=== PATIENT | female | born 1970 | race Hispanic/Latino ===

== ENCOUNTER 2020-02-02 15:43 | Inpatient (IN) | payer SELFPAY ==
[~2020-02-02] VITALS: Ht 157.5 cm; Wt 81.6 kg
[2020-02-02] MEDS ORDERED: ALBUTEROL SULFATE HFA 8GM INHALATION AEROSOL INH STA (15:50)
--- NOTE | 2020-02-02 15:55 | Emergency Department Note ---
History of Present Illnes History of Present Illness Chief Complaint: COVID PUI History of Present Illness This is a 49 year old female with dyspnea and myalgias for one week. . Onset (how long ago): week(s) (1) Location: Generalized Severity: moderate Onset quality: gradual Duration (how long): week(s) (1) Timing of current episode: constant Progression: worsening Chronicity: new Context: Reports recent illness Relieving factors: none Exacerbating factors: none Associated symptoms: Reports fever/chills, Reports malaise, Reports weakness Treatments prior to arrival: none Past Medical/Family History Physician Review I have reviewed the patient's past medical and family history. Any updates have been documented here. Past Medical History Recent Fever: Yes Clinical Suspicion of Infectio: Yes New/Unexplained Change in Ment: No Past Medical History: None Past Surgical History: None Social History Smoking Cessation: Never Smoker Alcohol Use: None Any Illegal Drug Use: No Review of Systems Review of Systems Constitutional: Reports fever EENTM: Reports no symptoms Cardiovascular: Reports no symptoms Respiratory: Reports cough Gastrointestinal: Reports no symptoms Genitourinary: Reports no symptoms Musculoskeletal: Reports no symptoms Integumentary: Reports no symptoms Neurological: Reports no symptoms Psychological: Reports no symptoms Endocrine: Reports no symptoms Hematological/Lymphatic: Reports no symptoms Physical Exam Related Data Allergies: Coded Allergies: No Known Allergies (Unverified , 02/02/20) Triage Vital Signs Vital Signs Date Time Temp Pulse Resp B/P (MAP) Pulse Ox O2 Delivery O2 Flow Rate FiO2 02/02/20 15:54 99.6 96 30 158/82 88 02/02/20 16:52 5.0 02/02/20 17:50 Nasal Cannula Vital signs reviewed: Yes Physical Exam CONSTITUTIONAL Constitutional: Present distressed, Present ill appearing HENT HENT: Present normocephalic, Present atraumatic, Present oropharynx clear/moist, Present nose normal HENT L/R: Present left ext ear normal, Present right ext ear normal EYES Eyes: Reports PERRL, Reports conjunctivae normal NECK Neck: Present ROM normal PULMONARY Pulmonary: Present respiratory distress (mild), Present other (decreased BS) CARDIOVASCULAR Cardiovascular: Present regular rhythm, Present heart sounds normal, Present c apillary refill normal, Present normal rate GASTROINTESTINAL Abdominal: Present soft, Present nontender, Present bowel sounds normal GENITOURINARY Genitourinary: Present exam deferred SKIN Skin: Present warm, Present dry MUSCULOSKELETAL Musculoskeletal: Present ROM normal NEUROLOGICAL Neurological: Present alert, Present oriented x 3, Present no gross motor or sensory deficits PSYCHOLOGICAL Psychological: Present mood/affect normal, Present judgement normal Results Laboratory Lab results reviewed: Yes Imaging Imaging results reviewed: Yes Impressions [place] [address] Patient Name: SALLY UMANA MR #: [id number] : 1970 Age/Sex: 49/F Req #: [id number] Adm Physician: RENEE URBAN MD Ordered by: YADY MORAN DO Report #: [id number] Location: [facility] Room/Bed: [place] [address] Procedure: [id number] DX/CHEST SINGLE (PORTABLE) Exam Date: 02/02/20 Exam Time: 1620 REPORT STATUS: Signed EXAMINATION: CHEST SINGLE (PORTABLE) INDICATION: ^Y ^cough ^[id number] ^1620 COMPARISON: None FINDINGS: AP view TUBES and LINES: None. LUNGS: Lungs are well inflated. Patchy bilateral lower lobe predominant airspace opacities. PLEURA: No pleural effusion or pneumothorax. HEART AND MEDIASTINUM: The cardiac silhouette is prominent. BONES AND SOFT TISSUES: No acute osseous lesion. Soft tissues are unremarkable. UPPER ABDOMEN: No free air under the diaphragm. IMPRESSION: Bilateral airspace opacities are concerning for multifocal pneumonia. Mild enlargement of the cardiac silhouette may be overestimated by portable technique. Mild central pulmonary vascular congestion. Signed by: Dr. Ronni Jensen M.D. on 02/02/2020 6:01 PM Dictated By: RONNI JENSEN MD 1801 Transcribed By: TAMIA on 02/02/201800 COPY TO: YADY MORAN DO~ Critical Care Time Total Critical Care Time (min): 31 Critcal care necessary due to: respiratory failure Critcal care time spent by me: develop tx plan w patient/surrogate, obtaining hx from patient/surrogate, order/perform tx or interventions, order/review laboratory studies, order/review radiographic studies, pulse oximetry, re- evaluation of patient condition Assessment & Plan Medical Decision Making MDM 49 yof presents to the ED for mild respiratory distress. COVID-19 infection highly suspected and confirmed. Concern for impending respiratory failure. Dr Omar Woo consulted. Patient admitted to IMCU Assessment & Plan Final Impression: (1) COVID-19 (2) Hypoxia Depart Disposition: ADMITTED Last Vital Signs Date Time Temp Pulse Resp B/P (MAP) Pulse Ox O2 Delivery O2 Flow Rate FiO2 02/04/20 12:50 97.9 74 16 123/69 (87) 96 02/04/20 09:30 Room Air 02/04/20 05:04 3.0 Medications in the ED Albuterol INH RQ4H STAT INH ; Start 02/02/20 at 15:50; Stop 02/02/20 at 15:51; Status DC YADY MORAN DO Feb 02, 2020 15:55
[2020-02-02] MEDS ORDERED: MORPHINE SULFATE 2 MG/ML SYR 1ML IV PRN (16:00)
[2020-02-02] MEDS ORDERED: ONDANSETRON HCL INJ 2MG/ML 2ML 2 MG/ML VIAL IV PRN (16:00)
[2020-02-02 16:13] LABS: BASOPHILS % 0.2 % (0.0-1.0); EOSINOPHILS % 0.1 % (0.0-6.0); HEMATOCRIT 43.1 % (34.2-44.1); HEMOGLOBIN 14.1 g/dL (12.0-16.0); LYMPHOCYTES # (AUTO) 2.9 (1.0-3.2); LYMPHOCYTES % 33.1 % (18.0-39.1); MEAN CORPUSCULAR HEMOGLOBIN 27.1 pg (28-32); MEAN CORPUSCULAR HGB CONC 32.7 g/dL (31-35); MEAN CORPUSCULAR VOLUME 82.9 fL (81-99); MONOCYTES % 10.9 % (4.4-11.3); NEUTROPHILS # (AUTO) 4.8 (2.1-6.9); NEUTROPHILS % 54.8 % (38.7-80.0); PLATELET COUNT 341 x10e3/uL (140-360); RED CELL DISTRIBUTION WIDTH 13.1 % (11.7-14.4)
[2020-02-02] MEDS ORDERED: ACETAMINOPHEN 325 MG TAB PO NR (16:15)
[2020-02-02 16:40] LABS: ALANINE AMINOTRANSFERASE 54 IU/L (0-55); ALBUMIN 3.3 g/dL (3.5-5.0); ALBUMIN/GLOBULIN RATIO 0.7 (0.8-2.0); ALKALINE PHOSPHATASE 78 IU/L (40-150); ANION GAP 14.8 mmol/L (8-16); BLOOD UREA NITROGEN 10 mg/dL (7-26); BUN/CREATININE RATIO 15 (6-25); CALCIUM 9.1 mg/dL (8.4-10.2); CARBON DIOXIDE 23 mmol/L (22-29); CHLORIDE 105 mmol/L (98-107); CREATININE, SERUM 0.67 mg/dL (0.57-1.11); EST GLOMERULAR FILTRATION RATE > 60 ML/MIN (60-); GLUCOSE 102 mg/dL (74-118); POTASSIUM 3.8 mmol/L (3.5-5.1); SODIUM 139 mmol/L (136-145)
[2020-02-02] MEDS ORDERED: ACETAMINOPHEN 325 MG TAB PO PRN (17:15)
[2020-02-02 17:31] VITALS: BP 135/74
--- NOTE | 2020-02-02 17:39 | NUR ---
AAOX3. ACYANOTIC. ARRIVED TO IMCU UNIT AT APPROXIMATELY 1725. RESTING IN BED. NO DISTRESS NOTED. O2 AT 5L NC
[2020-02-02 17:50] VITALS: BP 135/74
[2020-02-02 17:52] VITALS: BP 135/74
--- NOTE | 2020-02-02 18:04 | Diagnostic Imaging Report ---
EXAMINATION: CHEST SINGLE (PORTABLE) INDICATION: ^Y ^cough ^[id number] ^1620 COMPARISON: None FINDINGS: AP view TUBES and LINES: None. LUNGS: Lungs are well inflated. Patchy bilateral lower lobe predominant airspace opacities. PLEURA: No pleural effusion or pneumothorax. HEART AND MEDIASTINUM: The cardiac silhouette is prominent. BONES AND SOFT TISSUES: No acute osseous lesion. Soft tissues are unremarkable. UPPER ABDOMEN: No free air under the diaphragm. IMPRESSION: Bilateral airspace opacities are concerning for multifocal pneumonia. Mild enlargement of the cardiac silhouette may be overestimated by portable technique. Mild central pulmonary vascular congestion. Signed by: Dr. Jaycee Vann M.D. on 02/02/2020 6:01 PM
[2020-02-02] MEDS ORDERED: HYDRALAZINE HCL 20 MG/ML VIAL IV PRN (19:15)
[2020-02-02 20:00] VITALS: BP 121/77
--- NOTE | 2020-02-02 20:20 | History and Physical ---
CHIEF COMPLAINT: Cough and dyspnea. HISTORY OF PRESENT ILLNESS: The patient is a 49-year-old woman. She reports cough and malaise for about one week. She does not believe she had fevers at home. She does have some mild dyspnea. She has no nausea or vomiting. When she came to the emergency department, she had low oxygen saturations and had to be placed on nasal cannula. PAST SURGICAL HISTORY: Noncontributory. PAST MEDICAL HISTORY: 1. Hypertension. 2. The patient denies any history of asthma or COPD. 3. No prior history of diabetes. ALLERGIES: NO KNOWN DRUG ALLERGIES. SOCIAL HISTORY: The patient is not a smoker or drinker. FAMILY HISTORY: Family history is noncontributory. REVIEW OF SYSTEMS: The patient is afebrile. PHYSICAL EXAMINATION: VITAL SIGNS: The blood pressure is 142/80 and the saturation is 99% on 5 L. Pulse is 89. HEENT: Shows no facial swelling or erythema. CARDIAC: Reveals regular rate and rhythm with normal S1 and S2. LUNGS: Auscultation of lungs reveals crackles at the bases. There is no wheezing. ABDOMEN: Soft and nontender. There is no rebound or guarding. EXTREMITIES: Shows no leg edema or calf tenderness. There is no cyanosis or clubbing. SKIN: Shows no rashes. NEUROLOGICAL: Shows no focal abnormalities. LABORATORY DATA: BUN to creatinine ratio is normal. Other electrolytes are within normal limits. The albumin is 3.3. White blood cell count is 8.7 and the hemoglobin is 14.1. The platelet count is 341. RADIOGRAPHIC DATA: Chest x-ray is still pending. IMPRESSION: 1. Cough and viral pneumonia. 2. COVID-19. 3. Hypertension. PLAN: 1. Continue oxygen. 2. Judicious use of IV fluids. 3. Tylenol. 4. Antibiotics. 5. Lovenox. Isauro Woo MD Bijal/TRISTIAN /[id number]
[2020-02-02] MEDS ORDERED: SODIUM CHLORIDE 0.9% 250ML 250 ML ONE (20:50)
[2020-02-02] MEDS ORDERED: ZOLPIDEM TARTRATE 5 MG TAB PO PRN (21:00)
[2020-02-02] MEDS: CEFTRIAXONE SOD 1 GM/NS 50 ML 50 ML IV SCH (21:08)
[2020-02-02 21:30] VITALS: BP 121/77
[2020-02-02] MEDS: AZITHROMYCIN 500MG/NS 250 ML 250 ML IV SCH (21:30)
--- NOTE | 2020-02-02 21:30 | NUR ---
PATIENT RESTING IN BED, NO SIGNS OF DISTRESS NOTED. IV ANTIBIOTICS ARE RUNNING AT ORDERED RATE, AND PATIENT VOICES NO PAIN AT THIS TIME. NASAL CANNULA IS INTACT AND PATENT AND RUNNING AT 5 LITERS. O2 SATS ARE WITHIN NORMAL RANGE. BED IS IN LOWEST POSITION, BOTH SIDE RAILS ARE UP, CALL LIGHT IS WITHIN EASY REACH, WILL CONTINUE TO MONITOR.
[2020-02-03] VITALS (9 sets, daily range): BP systolic 113–120; BP diastolic 67–75
[2020-02-03] MEDS: LISINOPRIL 2.5 MG TAB PO SCH (08:37)
--- NOTE | 2020-02-03 10:07 | Progress Note ---
DATE: SUBJECTIVE: The patient feels better. She has less cough. She is having only mild dyspnea. She has no fevers. She is still on nasal cannula at 3 L. OBJECTIVE: HEENT: Shows no facial swelling or erythema. CARDIAC: Reveals regular rate and rhythm with normal S1 and S2. LUNGS: Auscultation of lungs reveals rhonchus breath sounds bilaterally. There is no wheezing. ABDOMEN: Soft, nontender. There is no rebound or guarding. EXTREMITIES: Shows no leg edema or calf tenderness. ASSESSMENT: 1. Viral pneumonia and coronavirus disease -19 infection. 2. Hypertension. PLAN: 1. Continue oxygen. 2. Tylenol. 3. Complete antibiotics. 4. Lovenox. Isauro Woo MD [facility]/MODL /[id number]
[2020-02-03] MEDS ORDERED: ENOXAPARIN SOD INJ 40 MG/0.4 ML SYR SC SCH (17:00)
--- NOTE | 2020-02-03 19:15 | NUR ---
SBAR REPORT RECEIVED FROM [facility] PATIENT AWAKE ALERT, NO DISTRESS, CONTINUE ON PLAN OF CARE, IV ANTIBIOTICS ROCEPHIN AND ZITHROMAX CONTINUED, IV PATENT C/D/I LOVENOX VTE, TYLENOL PRN FOR FEVER, OXYGEN TITRATE SPO2 ABOVE 93%, CURRENTLY ON 3 LITERS VIA NASAL CANNULA TOLERATING WELL, BED IN LOWEST POSITION, CALL LIGHT WITHIN REACH,
[2020-02-03] MEDS: CEFTRIAXONE SOD 1 GM/NS 50 ML 50 ML IV SCH (20:35)
[2020-02-03] MEDS: AZITHROMYCIN 500MG/NS 250 ML 250 ML IV SCH (22:16)
[2020-02-04] VITALS (7 sets, daily range): BP systolic 112–126; BP diastolic 60–78
[2020-02-04 03:41] LABS: BASOPHILS % 0.2 % (0.0-1.0); EOSINOPHILS # (AUTO) 0.1 (0.0-0.4); EOSINOPHILS % 1.2 % (0.0-6.0); HEMATOCRIT 36.7 % (34.2-44.1); HEMOGLOBIN 11.6 g/dL (12.0-16.0); LYMPHOCYTES # (AUTO) 1.6 (1.0-3.2); LYMPHOCYTES % 36.6 % (18.0-39.1); MEAN CORPUSCULAR HEMOGLOBIN 26.6 pg (28-32); MEAN CORPUSCULAR HGB CONC 31.6 g/dL (31-35); MEAN CORPUSCULAR VOLUME 84.2 fL (81-99); MONOCYTES # (AUTO) 0.4 (0.2-0.8); MONOCYTES % 9.2 % (4.4-11.3); NEUTROPHILS # (AUTO) 2.2 (2.1-6.9); NEUTROPHILS % 52.1 % (38.7-80.0); PLATELET COUNT 288 x10e3/uL (140-360); RED BLOOD COUNT 4.36 x10e6/uL (3.6-5.1); RED CELL DISTRIBUTION WIDTH 13.1 % (11.7-14.4)
[2020-02-04 03:56] LABS: ALANINE AMINOTRANSFERASE 133 IU/L (0-55); ALBUMIN 2.5 g/dL (3.5-5.0); ALBUMIN/GLOBULIN RATIO 0.6 (0.8-2.0); ALKALINE PHOSPHATASE 78 IU/L (40-150); BLOOD UREA NITROGEN 13 mg/dL (7-26); BUN/CREATININE RATIO 22 (6-25); CALCIUM 8.6 mg/dL (8.4-10.2); CARBON DIOXIDE 25 mmol/L (22-29); CHLORIDE 107 mmol/L (98-107); CREATININE, SERUM 0.58 mg/dL (0.57-1.11); EST GLOMERULAR FILTRATION RATE > 60 ML/MIN (60-); GLUCOSE 97 mg/dL (74-118); MAGNESIUM 2.3 MG/DL (1.3-2.1); PHOSPHORUS 3.6 MG/DL (2.3-4.7); SODIUM 143 mmol/L (136-145)
--- NOTE | 2020-02-04 06:20 | Progress Note ---
DATE: 02/03/2020 CONSULTING PHYSICIANS: 1. Dr. Isauro Woo. 2. Dr. Violette Moody. SUBJECTIVE: The patient is lying supine in bed. Denies much change. Still with occasional fevers and/or chills, shortness of breath, especially with any significant exertion, productive cough. Denies diarrhea. Headache at times. OBJECTIVE: VITAL SIGNS: Temperature 97.9, pulse 63, blood pressure 113/72, respirations 18, and oxygen saturation 98%. The patient was seen on 02/03/2020. GENERAL: Supine, wearing jeans. LUNGS: Clear to auscultation with diminished bases. Oxygen at 3 L via nasal cannula. HEENT: EOMI. NECK: Supple. CARDIOVASCULAR: Regular rate and rhythm. No murmur. ABDOMEN: Bowel sounds positive. Soft, nontender. EXTREMITIES: No pitting edema. No clubbing or cyanosis. No signs of DVT. NEUROLOGIC: GCS 15. Nonfocal. LABORATORY DATA: No new labs today. We will order labs for tomorrow. ASSESSMENT AND PLAN: 1. Possible multifocal viral community-acquired pneumonia, present on arrival due to COVID-19. Pulmonology and Infectious Disease following. Empiric azithromycin and Rocephin for possible bacterial component. Continue albuterol inhaler and Lovenox as well as supplemental oxygen. Wean oxygen as tolerated. Currently afebrile. 2. Controlled hypertension. Continue home dose of lisinopril. 3. Obesity with BMI of 32.91. Dietary restrictions. 4. Prophylaxis. Pepcid and Lovenox. Billing code 99893. Time spent 35 minutes. Dictated by Santy Baxter NP MD NICHELLE GarciaP/SHYAML /[id number]
--- NOTE | 2020-02-04 06:36 | NUR ---
REPORT GIVEN TO DAYSHIFT RN PATIENT REMAIN ON DROPLET PRECAUTION (+) COVID-19 RESULT, UPDATED WITH PLAN OF CARE
[2020-02-04] MEDS: LISINOPRIL 2.5 MG TAB PO SCH (08:42)
--- NOTE | 2020-02-04 12:33 | NUR ---
GAVE PACKET OF INFORMATION WITH [facility] FOR ASSISTANCE WITH LOW TO NO INCOME TO PATIENT. RESOURCES THAT PATIENT MAY BE ABLE TO FOLLOW UP UPON DISCHARGE. PT EDUCATED ON EACH RESOURCE AND UNDERSTANDING HOW TO FOLLOW UP TO SEE IF QUALIFIED FOR EACH RESOURCE.
--- NOTE | 2020-02-04 12:58 | Consultation ---
DATE OF CONSULTATION: REASON FOR CONSULTATION: Pneumonia, COVID-19. HISTORY OF PRESENT ILLNESS: This is a 49-year-old female, who comes in with one-week history of fever, chills, not feeling well, cough. The patient came to the emergency room. She was little bit hypoxemic upon arrival. She was started on 2 L and she is feeling much better. The patient has underlying history of obesity, hypertension. Denies diabetes or other medical issues. PAST SURGICAL HISTORY: She denies. ALLERGIES: NKA. SOCIAL HISTORY: There is no smoking, drug abuse, or alcohol abuse. FAMILY HISTORY: Unremarkable. PHYSICAL EXAMINATION: GENERAL: Currently alert, oriented, does not seem in acute distress. VITAL SIGNS: Stable. There is no fever since admission. Temperature 97.7, heart rate 72, O2 saturation 98% on 3 L. HEENT: She is not icteric. NECK: Supple. CHEST: Clear bilateral. HEART: S1 and S2. ABDOMEN: Soft. MEDICATIONS: The patient is on Prinivil, Zithromax and Rocephin. IMAGING: Her chest x-ray showed multifocal pneumonia. ASSESSMENT: The patient with coronavirus disease - 19, atypical pneumonia concerned about communal pneumonia. The patient clinically is doing better. Continue with oxygen. Continue with current choice of antibiotic. Continue with supportive care as ordered, reassess in the morning. Continue with Lovenox as ordered. We will follow. MD JEROMY Hodgson/TRISTIAN /[id number]
[2020-02-04] MEDS ORDERED: ONDANSETRON HCL 4 MG ORAL DISINTEGRATING TAB PO PRN (15:15)
--- NOTE | 2020-02-04 17:09 | Progress Note ---
DATE: SUBJECTIVE: The patient is feeling better. She is afebrile. She is still on nasal cannula. PHYSICAL EXAMINATION: VITAL SIGNS: Stable. HEENT: Shows no facial swelling or erythema. CARDIAC: Reveals regular rate and rhythm with normal S1, S2. LUNGS: Auscultation of lungs reveals clear breath sounds bilaterally. There is no wheezing. ABDOMEN: Soft and nontender. There is no rebound or guarding. EXTREMITIES: Shows no leg edema or calf tenderness. There is no cyanosis or clubbing. SKIN: Shows no rashes. LABORATORY DATA: BUN to creatinine ratio is normal. Other electrolytes within normal limits. The magnesium is 2.3. ALT is 133 and the AST is 84. IMPRESSION: 1. Viral pneumonia and COVID-19. 2. Hypertension. PLAN: 1. Continue oxygen. 2. Tylenol. 3. Possible discharge home today. MD TYE Del Rio/TRISTIAN /[id number]
--- NOTE | 2020-02-05 03:07 | Discharge Summary ---
PRIMARY CARE PHYSICIAN: No primary care physician. CONSULTING PHYSICIANS: 1. Violette Moody MD. 2. Isauro Woo MD. PERTINENT HISTORY AND PHYSICAL FINDINGS: CHIEF COMPLAINT: Cough and shortness of breath. HISTORY OF PRESENT ILLNESS: The patient is a 49-year-old female, admitted with cough, shortness of breath, headache for duration of about 5 days. She reported that 2 weeks prior she had direct contact with her [id number], who was hospitalized with COVID-19 as well as patient's brother. She denied diarrhea. PAST MEDICAL HISTORY: Hypertension and no obesity. PAST SURGICAL HISTORY: Cholecystectomy. FAMILY HISTORY: Mother had hypertension. SOCIAL HISTORY: Denied tobacco, alcohol, or illicit drug use. ALLERGIES: NO KNOWN ALLERGIES. ADMITTING DIAGNOSES: 1. Possible multifocal viral community-acquired pneumonia. 2. Controlled hypertension. 3. Obesity with BMI of 32.91. 4. Transaminitis. DISCHARGE DIAGNOSES: 1. Multifocal viral community-acquired pneumonia, present on arrival due to Coronavirus disease 2019. 2. Controlled hypertension. 3. Obesity with BMI of 32.91. 4. Transaminitis. On admission, WBCs 8.69, BUN 10, creatinine 0.67, estimated GFR greater than 60. AST 50. On 02/02/2020, coronavirus by PCR was detected. Blood cultures x2 collected on 02/01, showed no growth after 24 hours. Chest x-ray done on 02/01, showed bilateral airspace opacities concerning for multifocal pneumonia. Mild central pulmonary vascular congestion. Lactic acid was 1.5. During her stay, she was given azithromycin and Rocephin empirically for possible bacterial component, albuterol inhaler, Lovenox, and supplemental oxygen. Her oxygen was weaned off gradually today. She still has a cough. Vital signs today temperature 97.9, heart rate 74, respirations 16, blood pressure 123/69, oxygen saturation 96% on room air. The patient will be discharged home on cardiac diet. Activity level as tolerated. Self quarantine for 2 weeks and follow up with Dr. Moody. Follow up with Dr. Woo as directed. Establish and follow up with PCP in 1 to 2 weeks. No prescriptions. Dictated by Santy Baxter, BRIAN YayaMD LISSY Meza/MODL /[id number]
== END 2020-02-04 15:53 | disposition home or self-care (01) | DRG 177 ==
LOC: ER 15:43 → ERHOLD 15:45 → IMCU 18:06
PROVIDERS: ADMIT Internal Medicine; ATTEND Internal Medicine
DX: U07.1 COVID-19 (principal); J12.89 Other viral pneumonia; I10 Essential (primary) hypertension; E66.9 Obesity, unspecified; Z68.32 Body mass index [BMI] 32.0-32.9, adult; R09.02 Hypoxemia
CPT/HCPCS: 36415; 71045; 80053; 83605; 83735; 84100; 85025; 87040; 87635; 93005; 99284; J0360; J0456; J0696; J1650; J2270; J2405; J7050